=== PATIENT | male | born 1960 | race Caucasian/White ===

== ENCOUNTER 2023-06-11 08:01 | Emergency (ER) | payer OTHER ==
--- NOTE | 2023-06-11 08:39 | ED Physician Documentation ---
PD HPI DYSPNEA - Stated complaint Stated Complaint: SOA - Chief complaint Chief Complaint: Resp - History obtained from History obtained from: Patient - History of Present Illness Timing - onset: Last night (eating chicken soup. He states he was spooning some broth and sipping it, and felt that some fluid "went down the wrong tube". He sputtered and coughed and felt it then swallow down. Has continued though with feeling dyspnea.) Timing - onset during: Eating Timing - details: Abrupt onset, Still present Inciting event(s): No: Out of meds, URI Improved by: Benadryl, Rest. No: Sitting up Worsened by: No: Coughing Associated symptoms: Fever. No: Cough Similar symptoms before: Has not had sx before (has had episodes of feeling food stuck in lower esophagus. No rpior aspiration symptoms.) Review of Systems Constitutional: denies: Fever, Chills Throat: denies: Sore throat Cardiac: denies: Palpitations, Pedal edema, Calf pain Respiratory: reports: Dyspnea, Wheezing. denies: Cough, Hemoptysis GI: reports: Nausea. denies: Abdominal Pain, Vomiting Musculoskeletal: denies: Extremity swelling PD PAST MEDICAL HISTORY - Past Medical History Cardiovascular: None Respiratory: None Neuro: None Endocrine/Autoimmune: None GI: GERD (and will get feeling of food stuck intermittently. He states had swallow study back home showing tight LES and was to get EGD/? dilitation. ) - Present Medications Home Medications: Ambulatory Orders Medication Instructions Recorded Confirmed Albuterol Sulf [Ventolin Hfa 2 - 3 puffs INH QID #1 each 06/11/23 Inhaler] Aspirin EC [Ecotrin] 81 mg PO DAILY 06/11/23 06/11/23 Atenolol [Tenormin] 50 mg PO DAILY 06/11/23 06/11/23 Lisinopril [Zestril] 20 mg PO DAILY 06/11/23 06/11/23 Sildenafil Citrate [Viagra] 50 mg PO PRN PRN 06/11/23 06/11/23 Simvastatin [Zocor] 20 mg PO DAILY 06/11/23 06/11/23 dexAMETHasone [Decadron] 4 mg PO DAILY #5 tablet 06/11/23 - Allergies Allergies/Adverse Reactions: Allergies Allergy/AdvReac Type Severity Reaction Status Date / Time No Known Drug Allergies Allergy Verified 06/11/23 08:11 PD ED PE NORMAL - Vitals Vital signs reviewed: Yes - General General: Alert and oriented X 3, No acute distress, Well developed/nourished - Neck Neck: Supple, no meningeal sign, No adenopathy - Cardiac Cardiac: RRR, No murmur - Respiratory Respiratory: Clear bilaterally - Abdomen Abdomen: Soft, Non tender Results - Vitals Vitals: Vital Signs - 24 hr 06/11/23 06/11/23 08:08 09:17 Temperature 36.4 C L 36.5 C Heart Rate 73 59 L Respiratory 14 15 Rate Blood Pressure 164/101 H 128/82 H O2 Saturation 97 98 Oxygen O2 Source Room air - Rads (name of study) chest xray Relevant Findings:: Prelim report reviewed, EMP independent interpretation of test (no infiltrates nor effusions. ) PD Medical Decision Making - ED course Complexity details: reviewed results (cxr clear without infiltrates.), re- evaluated patient (improved breathing just with time. CXR without signs of aspiration but could be delayed further symptoms. But no signs of aspiration pneumonia at this time and pt/ are happy. Has new PCP appt next week. Parallel, could start appt process with SUrgery regarding EGC.), considered differential (has history of achalasia and was to get GI referral before moved here. However does not feel like food stuck, but more clearly that some soup broth went to upper airway with cough and wheezing with it. still feeling tightness in chest. ), d/w patient Departure - Departure Disposition: 01 Home, Self Care Clinical Impression: Dyspnea Aspiration into respiratory tract Qualifiers: Encounter type: initial encounter Qualified Code(s): T17.908A - Unspecified foreign body in respiratory tract, part unspecified causing other injury, initial encounter Condition: Stable Record reviewed to determine appropriate education?: Yes Follow-Up: [facility] [Provider Group] [facility] [Provider Group] Prescriptions: dexAMETHasone [Decadron] 4 mg PO DAILY #5 tablet Albuterol Sulf [Ventolin Hfa Inhaler] 2 - 3 puffs INH QID #1 each Comments: Your chest x-ray is clear without any signs of fluid or pneumonia. Your oxygen level is okay. Your breath sounds have a slight wheeziness to it. The irritation of some/food or soup type material into the upper airway and bronchioles can maintain an irritation or create an irritation that lasts for several days and if some had gotten down into the lung part can even take 2 or 3 days to evolve into a pneumonia picture. See how you do over the next few days. I would suggest using albuterol inhaler and the dexamethasone anti-inflammatory regularly over the next several days to week to reduce any upper airway irritation and inflammation. It sounds like there may be some mild element of underlying airway irritation which can go along with your environmental allergies. I sent prescriptions to [facility] pharmacy. Use the inhaler 2 to 3 puffs 4 times daily for the next week. Return if worsening. Follow-up with your primary care in a week as planned. You can get referral from your primary care when you meet regarding upper endoscopy for your previous diagnosed lower esophageal stricture. I also provided the name of the surgical's office here if you wanted to start make an appointment parallel. Forms: PCP List Discharge Date/Time: 06/11/23 09:17
--- NOTE | 2023-06-11 08:47 | XRAY Report ---
PROCEDURE: Chest 1 View X-Ray INDICATIONS: SOA/s/p aspiration TECHNIQUE: One view of the chest was acquired. COMPARISON: None. FINDINGS: Surgical changes and devices: None. Lungs and pleura: No pleural effusions or pneumothorax. Lungs are clear. Mediastinum: Mediastinal contours appear normal. Heart size is normal. Bones and chest wall: No suspicious bony lesions. Overlying soft tissues appear unremarkable. IMPRESSION: No acute cardiopulmonary process. Reviewed by: Luz Sena MD on 06/11/2023 8:46 AM PDT Approved by: Luz Sena MD on 06/11/2023 8:46 AM PDT Station ID: [id number]
[2023-06-11 09:23] VITALS: BP 128/82
== END 2023-06-11 09:17 | disposition home or self-care (01) ==
LOC: ED 08:01
DX: T17.928A Food in respiratory tract, part unspecified causing other injury, initial encounter (principal)
CPT/HCPCS: 99283; 99284

== ENCOUNTER 2023-06-18 09:18 | Outpatient (CLI) | payer OTHER ==
[2023-06-18 11:59] LABS: BASOPHILS # (AUTO) 0.1 10^3/uL (0.0-0.1); BASOPHILS % (AUTO) 0.7 %; EOSINOPHILS # (AUTO) 0.3 10^3/uL (0.0-0.7); EOSINOPHILS % (AUTO) 3.7 %; HCT - HEMATOCRIT 49.6 % (42.0-52.0); HGB - HEMOGLOBIN 16.2 g/dL (14.0-18.0); LYMPHOCYTES # (AUTO) 2.3 10^3/uL (1.5-3.5); LYMPHOCYTES % (AUTO) 25.2 %; MEAN CORPUSCULAR HEMOGLOBIN 30.5 pg (27.0-31.0); MEAN CORPUSCULAR HGB CONC 32.7 g/dL (32.0-36.0); MEAN CORPUSCULAR VOLUME 93.4 fL (80.0-94.0); MEAN PLATELET VOLUME 11.2 fL (7.4-11.4); MONOCYTES % (AUTO) 11.3 %; NEUTROPHILS # (AUTO) 5.4 10^3/uL (1.5-6.6); NEUTROPHILS % (AUTO) 58.8 %; PLT - PLATELET COUNT 181 10^3/uL (130-450); RED BLOOD COUNT 5.31 10^6/uL (4.70-6.10); WHITE BLOOD COUNT 9.2 x10^3/uL (4.8-10.8)
[2023-06-18 12:16] LABS: ALBUMIN 4.1 g/dL (3.2-5.5); ALBUMIN/GLOBULIN RATIO 1.3 (1.0-2.2); ALKALINE PHOSPHATASE 62 IU/L (42-121); ALT ALANINE AMINOTRANSFERASE 43 IU/L (10-60); AST ASPARTATE AMINOTRANSFERASE 23 IU/L (10-42); BILIRUBIN,TOTAL 0.8 mg/dL (0.2-1.0); BUN - BLOOD UREA NITROGEN 15 mg/dL (6-20); CALCIUM 9.2 mg/dL (8.5-10.3); CARBON DIOXIDE - CO2 29 mmol/L (21-32); CHLORIDE 105 mmol/L (101-111); CHOL/HDL RATIO 2.4 (<5.0); CHOLESTEROL 161 mg/dL; CREATININE 1.1 mg/dL (0.6-1.3); GFR - MDRD 68 (>89); GLUCOSE 90 mg/dL (74-104); HDL CHOLESTEROL 67 mg/dL; LDL CHOLESTEROL,CALCULATED 61 mg/dL; LDL/HDL RATIO 0.9 (<3.6); POTASSIUM 4.5 mmol/L (3.5-4.5); SODIUM 139 mmol/L (135-145); TOTAL PROTEIN 7.2 g/dL (6.4-8.9); TRIGLYCERIDES 163 mg/dL (48-352); VLDL CHOLESTEROL 33 mg/dL
[2023-06-18 12:17] LABS: ESTIMATED AVERAGE GLUCOSE 120 mg/dL (70-100); HEMOGLOBIN A1c% 5.8 % (4.27-6.07)
[2023-06-18 12:32] LABS: THYROID STIMULATING HORMONE 2.73 uIU/mL (0.34-5.60)
== END 2023-06-18 09:19 | disposition home or self-care (01) ==
LOC: LAB.N 09:18
PROVIDERS: ATTEND Nurse Practitioner
DX: I10 Essential (primary) hypertension (principal); E78.5 Hyperlipidemia, unspecified; E66.9 Obesity, unspecified; Z12.5 Encounter for screening for malignant neoplasm of prostate; G47.9 Sleep disorder, unspecified
CPT/HCPCS: 36415; 80053; 80061; 83036; 83721; 84153; 84443; 85025